=== PATIENT | male | born 1995 | race Caucasian/White ===

== ENCOUNTER 2024-02-19 07:26 | Emergency (ER) | payer OTHER ==
[~2024-02-19] VITALS: Ht 182.9 cm; Wt 120.9 kg
[~2024-02-19 07:26] MED LIST: IBUPROFEN400 MG PO
[2024-02-19] MEDS ORDERED: TETRACAINE HCL 0.5% 4 ML BTL OD SCH (08:30)
[2024-02-19] MEDS ORDERED: HYDROCODON-ACE1 EA10 PO (08:50)
[2024-02-19] MEDS ORDERED: ERYTHROMYCIN 3.5 GM HOME.PACK OP ONE (09:00)
[2024-02-19 09:20] VITALS: BP 38/95
== END 2024-02-19 09:17 | disposition home or self-care (01) ==
LOC: ED 07:26
DX: H57.11 Ocular pain, right eye (principal); Z87.891 Personal history of nicotine dependence; Z88.2 Allergy status to sulfonamides; Z91.040 Latex allergy status
CPT/HCPCS: 99283

== ENCOUNTER 2024-03-09 10:27 | Emergency (ER) | payer OTHER ==
[~2024-03-09] VITALS: Ht 182.9 cm; Wt 123.0 kg
[~2024-03-09 10:27] MED LIST changes: +HYDROCODON-ACE1 EA10 PO
--- OUTSIDE RECORDS SUMMARY | 2024-03-09 10:35 | XMS ---
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 Guy VISIT COUNT (12 MO.) 2 NEEL Schaffer TOTAL 2 NOTE: Visits indicate total known visits. ED/UCC VISIT TRACKING (12 MO.) 03/09/2024 10:27 [facility] [place] TYPE: Emergency COMPLAINT: - RIB PAIN 02/19/2024 07:26 [facility] [place] TYPE: Emergency COMPLAINT: - EYE PROBLEM DIAGNOSES: - Allergy status to sulfonamides - Latex allergy status - Ocular pain, right eye - Personal history of nicotine dependence INPATIENT VISIT TRACKING (12 MO.) No inpatient visits to display in this time frame [email or web address]
[2024-03-09 11:00] LABS: BASOPHILS 0.4 % (0-2); EOSINOPHILS 0.5 % (0-6); HEMATOCRIT 45.5 % (35.0-50.0); HEMOGLOBIN 15.9 g/dL (12.0-18.0); LYMPHOCYTES 30.4 % (24-44); MCH 30.7 (27-36); MCHC 34.9 g/dl (30-36); MCV 87.9 fl (81-99); MONOCYTES 7.3 % (0-12); NEUTROPHILS 61.4 % (39-80); PLATELET COUNT 304 K/uL (140-440); RBC 5.18 M/ul (4.3-5.7); RDW 12.6 (10.5-15.0)
[2024-03-09] MEDS ORDERED: IBUPROFEN 800 MG TAB PO ONE (11:00)
[2024-03-09 11:15] LABS: ALBUMIN 4.2 g/dL (3.4-5.0); ALBUMIN/GLOBULIN RATIO 1.11 (1.1-2.4); ALKALINE PHOSPHATASE 38 U/L (46-116); ALT (SGPT) 104 U/L (14-59); ANION GAP 15.2 (7-21); AST (SGOT) 35 U/L (15-37); BILIRUBIN, TOTAL 0.5 ng/dL (0.2-1.0); BUN/CREATININE RATIO 17.59 (6.0-28.6); CALCIUM 9.3 mg/dL (8.5-10.1); CARBON DIOXIDE 27 mmol/L (21-32); CHLORIDE 103 mmol/L (98-107); CREATININE, SERUM 1.08 mg/dL (0.70-1.30); GLOMERULAR FILTRATION RATE,EST 97 mL/min (>60); POTASSIUM 4.2 mmol/L (3.5-5.1); UREA NITROGEN 19 mg/dL (7-18)
[2024-03-09 12:08] VITALS: BP 136/77
--- NOTE | 2024-03-10 22:52 | EKG ---
[facility] [address] [place] [address] Signed Sinus bradycardia with marked sinus arrhythmia Otherwise normal ECG No previous ECGs available Confirmed by Tobi Mason MD () on 03/10/2024 10:52:30 PM Electronically Signed By: TOBI MASON MD 03/10/24 225 PATIENT NAME: WILMAN PATEL Electrocardiogram DATE OF : [birth year] PHYSICIAN: TOBI MASON MD REPORT #: [id number] REPORT IS CONFIDENTIAL AND NOT TO BE RELEASED WITHOUT AUTHORIZATION
== END 2024-03-09 12:09 | disposition home or self-care (01) ==
LOC: ED 10:27
PROVIDERS: Emergency Medicine
DX: R07.81 Pleurodynia (principal); Z87.891 Personal history of nicotine dependence; Z91.040 Latex allergy status; Z88.2 Allergy status to sulfonamides
CPT/HCPCS: 36415; 71045; 80053; 84484; 85025; 93005; 93010; 99285-25; A9270